=== PATIENT | male | born 2000 | race Caucasian/White ===

== ENCOUNTER → 2019-08-15 21:32 | Emergency (ER) | payer SELFPAY ==
[~2019-08-15 21:32] MED LIST: Metoclopramide HCl 10 MG/2 ML VIAL ONE
== END | disposition home or self-care (01) ==
LOC: ERS 21:32
DX: F10.129 Alcohol abuse with intoxication, unspecified (principal); Z79.899 Other long term (current) drug therapy
CPT/HCPCS: 96365; J2765